=== PATIENT | female | born 1995 | race Asian ===

== ENCOUNTER 2024-09-15 17:34 | Inpatient (IN) | payer MEDICAID ==
[~2024-09-15] VITALS: Ht 165.1 cm; Wt 56.7 kg
[2024-09-15] MEDS ORDERED: LORA-259 PO (18:12)
[2024-09-15] MEDS ORDERED: PALI1.5T PO (18:12)
[2024-09-15] MEDS ORDERED: LITH300C4 PO (18:12)
[2024-09-15 18:22] LABS: ABG BASE EXCESS -1.7 mmol/L (-2.0-3.0); ABG HCO3 21.2 mmol/L (21.0-28.0); ABG PCO2 30.8 mmHg (32.0-45.0); ABG PH 7.456 (7.350-7.450); ABG PO2 65.9 mmHg (83.0-108.0); ABG SITE LEFT BRACHIAL; ABG TOTAL HEMOGLOBIN 13.6 G/dL (12.0-16.0); AaDO2 94.2 mmHg; COHb 0.4 % (0.5-1.5); MetHb 0.2 % (0.0-1.5); O2Hb 93.7 % (94.0-98.0)
[2024-09-15] MEDS: IV NORMAL SALINE 1000 ML BAG IV ONE (18:34)
[2024-09-15 18:36] LABS: BASOPHILS # (AUTO) 0.1 K/UL (0.0-0.2); EOSINOPHILS # (AUTO) 0.1 K/uL (0.0-0.7); EOSINOPHILS % (AUTO) 0.7 % (0.0-7.0); HEMATOCRIT 38.4 % (31.2-41.9); HEMOGLOBIN 12.7 g/dL (10.9-14.3); LYMPHOCYTES # (AUTO) 2.5 K/uL (0.8-4.8); LYMPHOCYTES % (AUTO) 31.4 % (20.5-51.5); MEAN CORPUSCULAR HEMOGLOBIN 28.5 uug (24.7-32.8); MEAN CORPUSCULAR HGB CONC 33 g/dL (32.3-35.6); MONOCYTES # (AUTO) 0.5 K/uL (0.1-1.30); MONOCYTES % (AUTO) 6.1 % (0.0-11.0); NEUTROPHILS # (AUTO) 4.9 K/uL (1.8-8.9); NEUTROPHILS % (AUTO) 60.8 % (38.5-71.5); PLATELET COUNT (AUTO) 302 K/uL (179-408); RED BLOOD CELL COUNT(AUTO) 4.47 MIL/uL (3.63-4.92); RED CELL DISTRIBUTION WIDTH 14.1 % (12.3-17.7); WHITE BLOOD COUNT (AUTO) 8.1 K/uL (3.8-11.8)
[2024-09-15 18:41] LABS: *BILIRUBIN,URIN NEGATIVE (NEGATIVE); *BLOOD, URINE 3+ (NEGATIVE); *CLARITY,URINE CLEAR (CLEAR); *COLOR,URINE YELLOW (YELLOW); *KETONES,URINE 2+ (NEGATIVE); *PROTEIN,URINE NEGATIVE (NEGATIVE); *UROBILINOGEN,URINE 0.2 E.U./dl (NORMAL); LEUKOCYTE ESTERASE ,URINE 1+ (NEGATIVE); NITRITE, URINE NEGATIVE (NEGATIVE); PH,URINE 8.5 (5.0-8.0); UGLUCOSE NEGATIVE (NEGATIVE)
[2024-09-15 18:55] LABS: *AMPHETAMINE, URINE NEGATIVE (NEGATIVE); *BARBITURATE, URINE NEGATIVE (NEGATIVE); *BENZODIAZEPINE, URINE NEGATIVE (NEGATIVE); *CANNABINOID, URINE NEGATIVE (NEGATIVE); *COCCAINE, URINE NEGATIVE (NEGATIVE); *OPIATE, URINE NEGATIVE (NEGATIVE); *PHENCYCLIDINE SCREEN,URINE NEGATIVE (NEGATIVE); FENTANYL, URINE NEGATIVE (NEGATIVE)
[2024-09-15 18:58] LABS: ALANINE AMINOTRANSFERASE 19 U/L (14-59); ALBUMIN 3.9 g/dL (3.4-5.0); ALKALINE PHOSPHATASE 62 U/L (50-136); ASPARTATE AMINOTRANSFERASE 16 U/L (15-37); BILIRUBIN,DIRECT 0.1 mg/dL (0.0-0.2); BILIRUBIN,TOTAL 0.7 mg/dL (0.2-1.0); CALCIUM 8.9 mg/dL (8.5-10.1); CARBON DIOXIDE 24 mmol/L (21-32); CHLORIDE 106 mmol/L (98-107); CREATININE 0.8 mg/dL (0.6-1.3); GLUCOSE 96 mg/dL (74-106); NT-PRO BNP 27 pg/mL (0-125); POTASSIUM 3.4 mmol/L (3.5-5.1); SODIUM SERUM 142 mmol/L (136-145); TOTAL PROTEIN, SERUM 7.3 g/dL (6.4-8.2); UREA NITROGEN, BLOOD 8 mg/dL (7-18)
[2024-09-15 19:04] LABS: ACETAMINOPHEN < 2.0 ug/mL (10-30)
[2024-09-15 19:07] LABS: DIFFERENTIAL COMMENT 1
[2024-09-15 19:17] LABS: ETHANOL < 3 MG/DL (0-10)
[2024-09-15 19:47] LABS: BACTERIA,URINE FEW /HPF (NONE SEEN); RBC,URINE 50-80 /HPF (0-3); SQUAMOUS EPITHELIAL CELL,UR FEW /HPF (NONE SEEN)
[2024-09-15] MEDS: ONDANSETRON 4 MG/2 ML VIAL IV ONE (20:15)
[2024-09-15] MEDS ORDERED: ONDANSETRON 4 MG/2 ML VIAL ONE (21:48)
[2024-09-16] MEDS: IV NS 1000 ML 1,000 ML IV ONE (01:29)
[2024-09-16] MEDS ORDERED: ONDANSETRON 4 MG/2 ML VIAL IV PRN (02:45)
[2024-09-16] MEDS ORDERED: REMEDY ESSENTIAL ZINC PASTE 113 GM TP PRN (02:45)
[2024-09-16] MEDS ORDERED: MAGNESIUM HYDROXIDE 30 ML LIQUID UDC PO PRN (02:45)
[2024-09-16] MEDS: IV LACTATED RINGERS SOLUTION 1,000 ML IV SCH (04:50)
[2024-09-16 08:00] VITALS: BP 126/71; TEMP 97.5; O2SAT 100
[2024-09-16 08:28] LABS: BASOPHILS # (AUTO) 0.1 K/UL (0.0-0.2); BASOPHILS % (AUTO) 0.8 % (0.0-2.0); EOSINOPHILS # (AUTO) 0.1 K/uL (0.0-0.7); EOSINOPHILS % (AUTO) 1.6 % (0.0-7.0); HEMATOCRIT 40.8 % (31.2-41.9); HEMOGLOBIN 13.5 g/dL (10.9-14.3); LYMPHOCYTES # (AUTO) 1.4 K/uL (0.8-4.8); LYMPHOCYTES % (AUTO) 21.3 % (20.5-51.5); MEAN CORPUSCULAR HEMOGLOBIN 29.2 uug (24.7-32.8); MEAN CORPUSCULAR HGB CONC 33 g/dL (32.3-35.6); MEAN CORPUSCULAR VOLUME 87.9 fL (75.5-95.3); MONOCYTES # (AUTO) 0.3 K/uL (0.1-1.30); MONOCYTES % (AUTO) 4.4 % (0.0-11.0); NEUTROPHILS # (AUTO) 4.8 K/uL (1.8-8.9); NEUTROPHILS % (AUTO) 71.9 % (38.5-71.5); PLATELET COUNT (AUTO) 236 K/uL (179-408); RED BLOOD CELL COUNT(AUTO) 4.64 MIL/uL (3.63-4.92); RED CELL DISTRIBUTION WIDTH 13.9 % (12.3-17.7); WHITE BLOOD COUNT (AUTO) 6.6 K/uL (3.8-11.8)
[2024-09-16 08:47] LABS: CREATININE 0.8 mg/dL (0.6-1.3); MAGNESIUM 2.3 mg/dL (1.8-2.4); PHOSPHOROUS 2.8 mg/dL (2.5-4.9); POTASSIUM 3.8 mmol/L (3.5-5.1)
[2024-09-16 11:21] VITALS: BP 133/84; TEMP 97.3; O2SAT 96
[2024-09-16] MEDS ORDERED: OLAN5TAB70 PO (14:02)
[2024-09-16] MEDS ORDERED: PALI117D IM (14:02)
[2024-09-16 18:43] VITALS: BP 121/76; TEMP 98; O2SAT 95
[2024-09-16 19:00] VITALS: BP 108/59; TEMP 98.7; O2SAT 93
[2024-09-17] VITALS: BP 96/57; TEMP 98; O2SAT 96
[2024-09-17 04:00] VITALS: BP 113/75; TEMP 98.1; O2SAT 99
[2024-09-17] MEDS: IV LACTATED RINGERS SOLUTION 1,000 ML IV PRN (10:30)
[2024-09-17 14:31] LABS: BASOPHILS # (AUTO) 0.1 K/UL (0.0-0.2); BASOPHILS % (AUTO) 1.1 % (0.0-2.0); EOSINOPHILS # (AUTO) 0.1 K/uL (0.0-0.7); EOSINOPHILS % (AUTO) 1.5 % (0.0-7.0); HEMATOCRIT 38.5 % (31.2-41.9); HEMOGLOBIN 12.8 g/dL (10.9-14.3); LYMPHOCYTES # (AUTO) 2.1 K/uL (0.8-4.8); LYMPHOCYTES % (AUTO) 27.3 % (20.5-51.5); MEAN CORPUSCULAR HEMOGLOBIN 28.8 uug (24.7-32.8); MEAN CORPUSCULAR HGB CONC 33 g/dL (32.3-35.6); MEAN CORPUSCULAR VOLUME 86.8 fL (75.5-95.3); MONOCYTES # (AUTO) 0.5 K/uL (0.1-1.30); MONOCYTES % (AUTO) 6.9 % (0.0-11.0); NEUTROPHILS # (AUTO) 4.8 K/uL (1.8-8.9); NEUTROPHILS % (AUTO) 63.2 % (38.5-71.5); PLATELET COUNT (AUTO) 311 K/uL (179-408); RED BLOOD CELL COUNT(AUTO) 4.44 MIL/uL (3.63-4.92); RED CELL DISTRIBUTION WIDTH 14.3 % (12.3-17.7); WHITE BLOOD COUNT (AUTO) 7.6 K/uL (3.8-11.8)
[2024-09-17 14:38] LABS: CALCIUM 9.4 mg/dL (8.5-10.1); CREATININE 0.7 mg/dL (0.6-1.3); POTASSIUM 3.8 mmol/L (3.5-5.1)
[2024-09-17 14:45] LABS: DIFFERENTIAL COMMENT 1
[2024-09-17 19:30] VITALS: BP 110/63; TEMP 98.1; O2SAT 97
[2024-09-18] VITALS: BP 97/70; TEMP 98.3; O2SAT 97
[2024-09-18 03:53] VITALS: BP 111/77; TEMP 97.8; O2SAT 98
[2024-09-18] MEDS: ACETAMINOPHEN 325 MG TABLET PO PRN (04:07)
[2024-09-18] MEDS: OLANZAPINE ZYDIS 5 MG TAB.RAPDIS PO PRN (04:26)
[2024-09-18] MEDS: LORAZEPAM 1 MG TABLET PO PRN (05:04)
[2024-09-18 07:34] VITALS: BP 116/65; TEMP 97.5; O2SAT 96
[2024-09-18 11:34] VITALS: BP 111/69; TEMP 98.1; O2SAT 94
[2024-09-18 15:34] VITALS: BP 122/86; TEMP 98.3; O2SAT 94
[2024-09-18 21:39] VITALS: BP 109/72; TEMP 97.7; O2SAT 97
[2024-09-19 00:46] VITALS: BP 99/57; TEMP 97.6; O2SAT 98
[2024-09-19 05:21] VITALS: BP 119/76; TEMP 98.3; O2SAT 95
[2024-09-19 07:32] VITALS: BP 118/84; TEMP 98.2; O2SAT 94
[2024-09-19] MEDS ORDERED: TEMAZEPAM 15 MG CAPSULE PO PRN (09:30)
[2024-09-19 11:37] VITALS: BP 119/78; TEMP 97.6; O2SAT 95
[2024-09-19 14:37] VITALS: BP 115/75; TEMP 97.8; O2SAT 95
== END 2024-09-19 16:10 | disposition home or self-care (01) | DRG 817 ==
LOC: ER 17:38 → TRANSITION 09-16 04:40 → TELE3 09-16 07:44
PROVIDERS: ATTEND Internal Medicine
DX: T43.592A Poisoning by other antipsychotics and neuroleptics, intentional self-harm, initial encounter (principal); R45.851 Suicidal ideations; F31.64 Bipolar disorder, current episode mixed, severe, with psychotic features; R53.83 Other fatigue; R11.2 Nausea with vomiting, unspecified; Z91.51 Personal history of suicidal behavior; Y92.009 Unspecified place in unspecified non-institutional (private) residence as the place of occurrence of the external cause; F41.9 Anxiety disorder, unspecified; Z79.899 Other long term (current) drug therapy
CPT/HCPCS: 36415; 36600; 70030-TC; 71045; 82803; 83605; 83735; 84100; 84484; 85025; A4606; A4663; G0378; G0480; J2405; J7040; J7120